=== PATIENT | female | born 1945 | race Caucasian/White ===

== ENCOUNTER 2017-12-28 11:04 | Outpatient (REF) | payer MEDICARE, SELFPAY ==
[2017-12-28 21:57] LABS: ALT 37 U/L (12-78); AST 25 U/L (15-37); Albumin 3.9 g/dL (3.4-5.0); Alkaline Phosphatase 102 U/L (46-116); BUN 13 mg/dL (7-18); Bilirubin, Total 0.4 mg/dL (0.2-1.0); CREATININE 0.77 mg/dL (0.55-1.02); Calcium 9.4 mg/dL (8.5-10.1); Chloride 103 mmol/L (98-107); Cholesterol 212 mg/dL (50-200); Glucose 112 mg/dL (70-100); HDL Cholesterol 47 mg/dL (40-60); LDL CHOLESTEROL 122 mg/dL (<100); Potassium 4.4 mmol/L (3.5-5.1); Sodium 140 mmol/L (136-145); Total Protein 7.3 g/dL (6.4-8.2); Triglyceride 240 mg/dL (30-150)
[2017-12-28 22:40] LABS: Hemoglobin A1C 6.4 % (4.5-6.2)
== END 2017-12-28 11:24 ==
LOC: NCHCN 11:04
PROVIDERS: PCP Family Medicine; Visit Provider Family Medicine
DX: E78.5 Hyperlipidemia, unspecified (principal); R73.09 Other abnormal glucose; I10 Essential (primary) hypertension
CPT/HCPCS: 80053; 80061; 83721; 83036

== ENCOUNTER 2018-12-20 11:22 | Outpatient (REF) | payer MEDICARE, SELFPAY ==
[2018-12-20 20:19] LABS: Anion Gap 8.4 mmol/L (3-11); BUN 15 mg/dL (7-18); CO2 27.6 mmol/L (21.0-32.0); CREATININE 0.76 mg/dL (0.55-1.02); Calcium 9.6 mg/dL (8.5-10.1); Chloride 105 mmol/L (98-107); Glucose 114 mg/dL (70-100); Potassium 5.1 mmol/L (3.5-5.1); Sodium 141 mmol/L (136-145)
== END 2018-12-20 11:42 ==
LOC: NCHCN 11:22
PROVIDERS: PCP Family Medicine; Visit Provider Family Medicine
DX: E78.5 Hyperlipidemia, unspecified (principal); I10 Essential (primary) hypertension
CPT/HCPCS: 80048

== ENCOUNTER 2020-07-21 12:51 | Outpatient (REF) | payer MEDICARE, SELFPAY ==
[2020-07-21 21:52] LABS: Calculated LDL 93 mg/dL (<100); Cholesterol 188 mg/dL (<200); HDL Cholesterol 50 mg/dL (40-60); Triglyceride 229 mg/dL (<150)
[2020-07-21 22:07] LABS: COMMENT (LAB VIEW ONLY) 64.04 mg/dL; Microalb ug/mg Crea 13.9 ug/mg Cr
== END 2020-07-21 12:52 | disposition home or self-care (01) ==
LOC: NCHCN 12:51
PROVIDERS: PCP Family Medicine; Visit Provider Family Medicine
DX: E78.5 Hyperlipidemia, unspecified (principal); E66.9 Obesity, unspecified; E11.39 Type 2 diabetes mellitus with other diabetic ophthalmic complication
CPT/HCPCS: 80061; 82043; 82570

== ENCOUNTER 2021-09-06 16:25 | Outpatient (REF) | payer MEDICARE, SELFPAY ==
[2021-09-06 14:42] LABS: Hemoglobin A1C 6.4 % (<5.7)
[2021-09-06 14:43] LABS: ALT 30 U/L (14-59); AST 25 U/L (15-37); Albumin 3.8 g/dL (3.4-5.0); Alkaline Phosphatase 87 U/L (46-116); Anion Gap 10.3 mmol/L (3-11); BUN 19 mg/dL (7-18); Bilirubin, Total 0.6 mg/dL (0.2-1.0); CO2 25.7 mmol/L (21.0-32.0); CREATININE 0.7 mg/dL (0.55-1.02); Calcium 9.1 mg/dL (8.5-10.1); Calculated LDL 77 mg/dL (<100); Chloride 102 mmol/L (98-107); Cholesterol 184 mg/dL (<200); Glucose 128 mg/dL (74-106); HDL Cholesterol 51 mg/dL (40-60); Sodium 138 mmol/L (136-145); Total Protein 7.7 g/dL (6.4-8.2); Triglyceride 280 mg/dL (<150)
== END 2021-09-06 16:26 | disposition home or self-care (01) ==
LOC: NCHCN 16:25
PROVIDERS: PCP Family Medicine; Visit Provider Family Medicine
DX: E11.39 Type 2 diabetes mellitus with other diabetic ophthalmic complication (principal); I10 Essential (primary) hypertension; E78.5 Hyperlipidemia, unspecified
CPT/HCPCS: 80053; 80061; 82043; 82570; 83036

== ENCOUNTER 2021-09-10 19:53 | Outpatient (REF) | payer MEDICARE, SELFPAY ==
[2021-09-10 21:08] LABS: COMMENT (LAB VIEW ONLY) 111.44 mg/dL; Microalb ug/mg Crea 10.5 ug/mg Cr
== END 2021-09-10 19:54 | disposition home or self-care (01) ==
LOC: NCHCN 19:53
PROVIDERS: PCP Family Medicine; Visit Provider Family Medicine
DX: E11.39 Type 2 diabetes mellitus with other diabetic ophthalmic complication (principal)
CPT/HCPCS: 82043; 82570

== ENCOUNTER 2022-07-01 13:57 | Outpatient (REF) | payer MEDICARE, SELFPAY ==
[2022-07-01 15:26] LABS: COMMENT (LAB VIEW ONLY) 127.26 mg/dL; Microalb ug/mg Crea 12.2 ug/mg Cr
[2022-07-01 15:31] LABS: Anion Gap 8.5 mmol/L (3-11); BUN 15 mg/dL (7-18); CO2 26.5 mmol/L (21.0-32.0); CREATININE 0.8 mg/dL (0.55-1.02); Chloride 105 mmol/L (98-107); Estimated GFR 77.27 (mL/min/1.73m2); Glucose 123 mg/dL (74-106); Potassium 4.3 mmol/L (3.5-5.1); Sodium 140 mmol/L (136-145)
[2022-07-01 19:33] LABS: Hemoglobin A1C 6.9 % (<5.7)
== END 2022-07-01 13:58 | disposition home or self-care (01) ==
LOC: NCHCN 13:57
PROVIDERS: PCP Family Medicine; Visit Provider Family Medicine
DX: I10 Essential (primary) hypertension (principal); E11.39 Type 2 diabetes mellitus with other diabetic ophthalmic complication
CPT/HCPCS: 80048; 82043; 82570; 83036

== ENCOUNTER 2023-07-07 14:10 | Outpatient (REF) | payer MEDICARE, SELFPAY ==
[2023-07-07 14:31] LABS: Anion Gap 9.8 mmol/L (3-11); BUN 15 mg/dL (7-18); CO2 28.2 mmol/L (21.0-32.0); CREATININE 0.7 mg/dL (0.55-1.02); Calcium 9.8 mg/dL (8.5-10.1); Calculated LDL 51 mg/dL (<100); Chloride 104 mmol/L (98-107); Cholesterol 146 mg/dL (<200); Estimated GFR 90.14 (mL/min/1.73m2); Glucose 116 mg/dL (74-106); HDL Cholesterol 54 mg/dL (40-60); Potassium 4.6 mmol/L (3.5-5.1); Sodium 142 mmol/L (136-145); Triglyceride 206 mg/dL (<150)
== END 2023-07-07 14:11 | disposition home or self-care (01) ==
LOC: NCHCN 14:10
PROVIDERS: PCP Family Medicine; Visit Provider Family Medicine
DX: I10 Essential (primary) hypertension (principal)
CPT/HCPCS: 80048; 80061

== ENCOUNTER 2023-12-14 14:23 | Outpatient (REF) | payer MEDICARE, SELFPAY ==
[2023-12-14 21:46] LABS: COMMENT (LAB VIEW ONLY) 115.16 mg/dL; Microalb ug/mg Crea 15.6 ug/mg Cr
== END 2023-12-14 14:24 | disposition home or self-care (01) ==
LOC: NCHCN 14:23
PROVIDERS: PCP Family Medicine; Visit Provider Family Medicine
DX: E11.319 Type 2 diabetes mellitus with unspecified diabetic retinopathy without macular edema (principal)
CPT/HCPCS: 82043; 82570

== ENCOUNTER 2024-06-18 14:21 | Outpatient (REF) | payer MEDICARE, SELFPAY ==
[2024-06-18 21:38] LABS: Anion Gap 11.3 mmol/L (3-11); BUN 16 mg/dL (7-18); CO2 24.7 mmol/L (21.0-32.0); CREATININE 0.8 mg/dL (0.55-1.02); Calcium 9.3 mg/dL (8.5-10.1); Chloride 106 mmol/L (98-107); Estimated GFR 76.31 (mL/min/1.73m2); Glucose 111 mg/dL (74-106); Sodium 142 mmol/L (136-145)
== END 2024-06-18 14:22 | disposition home or self-care (01) ==
LOC: NCHCN 14:21
PROVIDERS: PCP Family Medicine; Visit Provider Family Medicine
DX: I10 Essential (primary) hypertension (principal)
CPT/HCPCS: 80048

== ENCOUNTER 2024-12-18 20:50 | Outpatient (REF) | payer MEDICARE, SELFPAY ==
[2024-12-18 22:11] LABS: COMMENT (LAB VIEW ONLY) 106.76 mg/dL; Microalb ug/mg Crea 14.6 ug/mg Cr
== END 2024-12-18 20:51 | disposition home or self-care (01) ==
LOC: NCHCN 20:50
PROVIDERS: PCP Family Medicine; Visit Provider Family Medicine
DX: E11.9 Type 2 diabetes mellitus without complications (principal)
CPT/HCPCS: 82043; 82570